=== PATIENT | female | born 1950 | race Caucasian/White ===

== ENCOUNTER 2016-03-22 02:18 | Emergency (ER) | payer BC ==
--- NOTE | 2016-03-22 02:32 | Emergency Department Record ---
History of Present Illness - General Chief complaint: Pain Stated complaint: RIGHT HIP PAIN Time Seen by Provider: 03/22/16 02:31 Source: Patient Mode of Arrival: Ambulatory Limitations: No limitations - History of Present Illness Initial comments: The patient is here due to R sided pelvis pain for 12 months. She denies any fall or direct trauma. She may have injured it when she went horse back riding 4 months ago and twisted funny. 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 There is pain with walking and she states she feels like her hip catches with walking at times. She denies any AP, leg numbness, weakness or any fevers. MD Complaint: Joint pain Onset/Timin -: Month(s) Location: Right Quality: Aching, Sharp Consistency: Constant Improves with: Nothing Worsens with: Nothing - Related Data Home Medications Medication Instructions Recorded Confirmed Last Taken Triamterene/Hydrochlorothiazid 20 mg PO ASDIR 11/13/15 03/22/16 11/12/15 [Triamterene-Hctz 37.5-25 mg Cp] Ibuprofen [Motrin] 800 mg PO Q8H PRN 11/14/15 03/22/16 Unknown Potassium Chloride [Klor-Con] 10 meq PO ASDIR 03/22/16 03/22/16 Unknown Previous Rx's Medication Instructions Recorded Tramadol HCl 50 mg PO Q8H #15 tab 03/22/16 Allergies Allergy/AdvReac Type Severity Reaction Status Date / Time Sulfa (Sulfonamide AdvReac Severe HIVES Verified 11/13/15 23:49 Antibiotics) Travel Screening - Travel/Exposure Within Last 30 Days Have you traveled within the last 30 days?: No Review of Systems Constitutional: Denies: Chills, Fever Eyes: Denies: Eye discharge ENT: Denies: Congestion Respiratory: Denies: Cough, Dyspnea Cardiovascular: Denies: Arrhythmia Past Medical History - SOCIAL HISTORY Smoking Status: Never smoker Alcohol Use: None Drug Use: None - RESPIRATORY Hx Respiratory Disorders: No - CARDIOVASCULAR Hx Cardio Disorders: Yes Hx Hypertension: Yes - NEURO Hx Neuro Disorders: No - GI Hx GI Disorders: No - Hx Genitourinary Disorders: No - ENDOCRINE Hx Endocrine Disorders: No - MUSCULOSKELETAL Hx Musculoskeletal Disorders: Yes Hx Arthritis: Yes (knees) Comment:: per pt torn rotater cuff left shoulder - PSYCH Hx Psych Problems: Yes Comment:: stress - HEMATOLOGY/ONCOLOGY Hx Hematology/Oncology Disorders: No Family Medical History Any Significant Family History?: Yes Hx Cancer: Father, Mother Hx Diabetes: Mother, Grandparents Hx Heart Disease: Grandparents Hx HTN: Father, Mother Hx Kidney Disease: Mother Physical Exam - General General Appearance: Alert, Oriented x3, Cooperative, No acute distress - Head Head exam: Atraumatic, Normocephalic, Normal inspection - Eye Eye exam: Normal appearance, PERRL - Neck Neck exam: Normal inspection, Full ROM. negative: Tenderness - Respiratory Respiratory exam: Normal lung sounds bilaterally. negative: Respiratory distress - Cardiovascular Cardiovascular Exam: Regular rate, Normal rhythm, Normal heart sounds - GI/Abdominal GI/Abdominal exam: Soft, Normal bowel sounds. negative: Tenderness - Extremities Extremities exam: Normal inspection, Full ROM (with only mild pain with full ROM of the R hip.), Tenderness (There is mild tenderness to palpation of the R lateral iliac wing.). negative: Joint swelling - Back Back exam: Reports: Normal inspection, Full ROM. Denies: Muscle spasm, Rash noted, Tenderness, Vertebral tenderness - Neurological Neurological exam: Alert, Normal gait, Oriented X3. negative: Abnormal gait, Altered, Motor sensory deficit - Psychiatric Psychiatric exam: negative: Agitated, Anxious, Depressed - Skin Skin exam: negative: Rash Course Vital Signs 03/22/16 02:28 Temperature 97.4 F L Pulse Rate 79 Respiratory 21 Rate Blood Pressure 148/89 Pulse Ox 98 - Reevaluation(s) Reevaluation #1: The patient is doing better at this time. Her pain is improved with the Toradol and she is ambulating normally. I did explain to her that I felt the xrays were WNL and that the best course of action is for her to F/U with her PCP for recheck and possibly to have an MRI ordered. 03/22/16 03:14 Medical Decision Making - Data Complexity MDM Data: X-Ray Ordered and/or Reviewed - Radiology Data Radiology results: Report reviewed (R Hip: No acute changes.) Disposition Disposition: Discharge Clinical Impression: Chronic right hip pain Disposition: Home, Self-Care Condition: (1) Good Instructions: Arthralgia (ED) Additional Instructions: Please continue your Motrin or Alleve for pain and also take the Tramadol if needed. Please see your PCP this week for recheck and possibly to have an MRI ordered of the hip. Please return to the ER for any increased pain, fever, or weakness. Prescriptions: Tramadol HCl 50 mg PO Q8H #15 tab Forms: Patient Portal Access Time of Disposition: 03:13
[2016-03-22] MEDS ORDERED: KETOROLAC 30 MG/ML VIAL IM ONE (02:37)
--- NOTE | 2016-03-25 13:24 | RADIOLOGY REPORT ---
EXAM: RIGHT HIP HISTORY: PATIENT HAS RIGHT HIP PAIN TIMES ONE MONTH. PATIENT STATED PREVIOUS TWIST OF HIP TIMES FOUR MONTHS AGO. COULD BE RELATED TO PAIN. TECHNIQUE: AP view of the pelvis and two views of the right hip were provided without comparison studies. FINDINGS: There is no radiographic evidence of a fracture or dislocation of the visualized pelvis. Degenerative changes of the pubic symphysis are noted. The visualized left hip is unremarkable. The visualized soft tissues of the pelvis appear unremarkable. Punctate densities noted in the region of the soft tissues of the left hip. This finding may represent overlying artifact. Clinical correlation is recommended. There is no radiographic evidence of a fracture or dislocation of the right hip. No significant soft tissue abnormalities are identified. IMPRESSION: NO RADIOGRAPHIC EVIDENCE OF AN ACUTE PROCESS INVOLVING THE RIGHT HIP. DEGENERATIVE CHANGES OF THE PUBIC SYMPHYSIS ARE IDENTIFIED. IF THERE IS FURTHER CLINICAL CONCERN THEN MRI OF THE RIGHT HIP CAN BE OBTAINED FOR FURTHER EVALUATION. JOB NUMBER: [id number] MTDD
== END 2016-03-22 03:21 | disposition home or self-care (01) ==
LOC: ER 02:18
DX: G89.29 Other chronic pain (principal); M25.551 Pain in right hip
CPT/HCPCS: 99283; 96372; 99284; 73502; J1885

== ENCOUNTER 2018-03-31 17:44 | Emergency (ER) | payer MEDICARE ==
--- NOTE | 2018-03-31 18:05 | Emergency Department Record ---
History of Present Illness - General Chief Complaint: Fall Injury Stated Complaint: FELL RIGHT KNEE PAIN Time Seen by Provider: 03/31/18 17:53 Source: Patient, Family Mode of Arrival: Wheelchair Limitations: No limitations - History of Present Illness Initial Comments: 67 yo female presents with bilateral knee pain. This morning the patient slipped on ice at work this morning. She landed on her knees. Her right knee hurts more than the left. She denies any other injuries. No head injury. No other extremity pain or injury. Her right knee hurts mid knee. Complaint: Fall Onset/Timin -: Hour(s) Fall From: Other When Fall Occurred: Other Fall Witnessed: No Place Fall Occurred: Work, Street Loss of Consciousness: None Prolonged Down Time?: No Symptoms Prior to Fall: None Location - Extremities: Left: Knee, Right: Knee Severity: Moderate Severity scale (1-10): 7 Quality: Aching Context: Tripped/slipped Associated Symptoms: Denies - [place] Coma Scale Eye Response: (4) Open spontaneously Motor Response: (6) Obeys commands Verbal Response: (5) Oriented [place] Total: 15 - Related Data Home Medications Medication Instructions Recorded Confirmed Last Taken Tramadol HCl 50 mg PO Q6H PRN 03/31/18 03/31/18 Unknown Allergies Allergy/AdvReac Type Severity Reaction Status Date / Time silver sulfadiazine Allergy HIVES Verified 03/31/18 17:53 [From Silvadene] Sulfa (Sulfonamide AdvReac Severe HIVES Unverified 10/08/16 18:37 Antibiotics) Travel Screening - Travel/Exposure Within Last 30 Days Have you traveled within the last 30 days?: No Review of Systems Constitutional: Denies: Chills, Fever, Malaise, Weakness Eyes: Denies: Eye discharge ENT: Denies: Congestion, Throat pain Respiratory: Denies: Cough Cardiovascular: Denies: Chest pain, Palpitations, Syncope Endocrine: Denies: Fatigue Gastrointestinal: Denies: Abdominal pain, Diarrhea, Nausea, Vomiting Genitourinary: Denies: Dysuria Musculoskeletal: Reports: Arthralgia. Denies: Back pain, Joint swelling, Myalgia Skin: Denies: Bruising, Change in color, Rash Neurological: Denies: Confusion, Headache, Numbness, Weakness Psychiatric: Denies: Anxiety Hematological/Lymphatic: Denies: Easy bleeding, Easy bruising, Swollen glands Past Medical History - SOCIAL HISTORY Smoking Status: Never smoker - RESPIRATORY Hx Respiratory Disorders: No - CARDIOVASCULAR Hx Cardio Disorders: Yes Hx Hypertension: Yes - NEURO Hx Neuro Disorders: No - GI Hx GI Disorders: No - Hx Genitourinary Disorders: No - ENDOCRINE Hx Endocrine Disorders: No - MUSCULOSKELETAL Hx Musculoskeletal Disorders: Yes Hx Arthritis: Yes (knees) Comment:: per pt torn rotater cuff left shoulder - PSYCH Hx Psych Problems: Yes Comment:: stress - HEMATOLOGY/ONCOLOGY Hx Hematology/Oncology Disorders: No Family Medical History Any Significant Family History?: Yes Hx Cancer: Father, Mother Hx Diabetes: Mother, Grandparents Hx Heart Disease: Grandparents Hx HTN: Father, Mother Hx Kidney Disease: Mother Physical Exam - General General Appearance: Alert, Oriented x3, Cooperative, No acute distress Limitations: No limitations - Head Head exam: Atraumatic, Normal inspection Head exam detail: negative: Abrasion, Contusion, Hematoma, Laceration - Eye Eye exam: Normal appearance. negative: Conjunctival injection - ENT ENT exam: Normal exam Ear exam: Normal external inspection Nasal Exam: Normal inspection Mouth exam: Normal external inspection - Neck Neck exam: Normal inspection - Cardiovascular Cardiovascular Exam: Regular rate, Normal rhythm, Normal heart sounds - GI/Abdominal GI/Abdominal exam: Soft - Rectal Rectal exam: Deferred - exam: Deferred - Extremities Extremities exam: Normal inspection, Full ROM, Tenderness. negative: Calf tenderness, Joint swelling, Normal capillary refill, Pedal edema Image of Full Body: 1 - tender anteriorly, full ROM, no crepitus 2 - tender medially, normal inspection - Back Back exam: Denies: CVA tenderness (R), CVA tenderness (L) - Neurological Neurological exam: Alert, Oriented X3 - Psychiatric Psychiatric exam: Normal affect, Normal mood - Skin Skin exam: Dry, Intact, Normal color, Warm Course Vital Signs 03/31/18 17:48 Temperature 98.7 F Pulse Rate 72 Respiratory 20 Rate Blood Pressure 181/96 Pulse Ox 97 Disposition Disposition: Discharge Clinical Impression: Contusion of knee, right Qualifiers: Encounter type: initial encounter Qualified Code(s): S80.01XA - Contusion of right knee, initial encounter Contusion of left knee Qualifiers: Encounter type: initial encounter Qualified Code(s): S80.02XA - Contusion of left knee, initial encounter Disposition: Home, Self-Care Condition: (1) Good Instructions: Knee Sprain (ED) Additional Instructions: Call your doctor for the next available follow up appointment Return to the ER for a recheck if worse, any new concerns or questions Take the prescriptions provided as directed Review this ER visit and the tests performed with your family doctor Forms: Patient Portal Access Quality - Blood Pressure Screening Does Patient Have Any of the Following: No Blood Pressure Classification: Hypertensive Reading Systolic Measurement: 181 Diastolic Measurement: 96
--- NOTE | 2018-04-04 08:05 | RADIOLOGY REPORT ---
EXAM: RIGHT KNEE HISTORY: FELL. RIGHT KNEE PAIN. TECHNIQUE: Four views of the right knee are obtained including a sunrise view. FINDINGS: There is mild medial compartment narrowing. There is mild patellofemoral narrowing. There are no joint effusions. There are no fractures. IMPRESSION: MILD RIGHT KNEE DJD. JOB NUMBER: [id number] [facility]
--- NOTE | 2018-04-04 08:26 | RADIOLOGY REPORT ---
EXAM: LEFT KNEE, FOUR VIEWS HISTORY: FELL. KNEE PAIN. TECHNIQUE: Four views of the left knee were obtained. FINDINGS: There is moderate medial compartment narrowing with osteophytosis. There is mild lateral compartment narrowing. There is mild patellofemoral DJD. There are no fractures. There is no effusion. IMPRESSION: MODERATE LEFT KNEE DJD. [facility] NUMBER: [id number] [facility]
== END 2018-03-31 19:04 | disposition home or self-care (01) ==
LOC: ER 17:44
DX: S80.01XA Contusion of right knee, initial encounter (principal); S80.02XA Contusion of left knee, initial encounter; W01.0XXA Fall on same level from slipping, tripping and stumbling without subsequent striking against object, initial encounter; Y93.29 Activity, other involving ice and snow; Y92.9 Unspecified place or not applicable; Y99.8 Other external cause status
CPT/HCPCS: 99283

== ENCOUNTER 2018-11-07 18:53 | Emergency (ER) | payer MEDICARE ==
[2018-11-07] MEDS ORDERED: CEFEPIME HCL 2 GM in 0.9 % SODIUM CHLORIDE 100ML 100 ML IVPB ONE (19:15)
--- NOTE | 2018-11-07 19:17 | Emergency Department Record ---
History of Present Illness - General Chief complaint: Extremity Problem Stated complaint: CELLULITIS Time Seen by Provider: 11/07/18 19:08 Source: Patient Mode of Arrival: Ambulatory Limitations: No limitations - History of Present Illness Initial comments: 68 yo female presents with redness and some drainage to the leg. She was diagnosed with cellulitis 8 days ago. She had a culture preformed by the [facility] that grew pseudomonas aeruginosa. She has a history of similar cellulitis in the past. She denies fever or pain. She has some superficial erosion with drainage. 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 Dr Crockett is her doctor. She is on Levaquin and not improving. The C and S was reviewed. It is intermediate. MD Complaint: Extremity swelling, Other (Cellulitis) -: Week(s) (1 week 1 day) Location: Left History of Same: Yes Radiation: Distal Quality: Other (swelling) Consistency: Constant Improves with: Nothing Worsens with: Nothing - Related Data Home Medications Medication Instructions Recorded Confirmed Last Taken Hydrocodone/Acetaminophen [[place] 1 tab PO Q6HR PRN 11/07/18 11/07/18 Unknown 5-325 Tablet] Allergies Allergy/AdvReac Type Severity Reaction Status Date / Time silver sulfadiazine Allergy HIVES Verified 11/07/18 19:14 [From Silvadene] Sulfa (Sulfonamide AdvReac Severe HIVES Verified 11/07/18 19:14 Antibiotics) Review of Systems Constitutional: Denies: Chills, Fever, Malaise, Weakness Eyes: Denies: Eye discharge ENT: Denies: Congestion, Throat pain Respiratory: Denies: Cough, Dyspnea Cardiovascular: Denies: Chest pain, Palpitations, Syncope Endocrine: Denies: Fatigue, Polydipsia, Polyuria Gastrointestinal: Denies: Abdominal pain, Diarrhea, Nausea, Vomiting Genitourinary: Denies: Dysuria, Urgency Musculoskeletal: Denies: Arthralgia, Back pain, Myalgia, Neck pain Skin: Reports: Change in color, Rash. Denies: Bruising Neurological: Denies: Confusion, Headache, Weakness Psychiatric: Denies: Anxiety Hematological/Lymphatic: Denies: Easy bleeding, Easy bruising Past Medical History - SOCIAL HISTORY Smoking Status: Never smoker - RESPIRATORY Hx Respiratory Disorders: No - CARDIOVASCULAR Hx Cardio Disorders: Yes Hx Hypertension: Yes - NEURO Hx Neuro Disorders: No - GI Hx GI Disorders: No - Hx Genitourinary Disorders: No - ENDOCRINE Hx Endocrine Disorders: No - MUSCULOSKELETAL Hx Musculoskeletal Disorders: Yes Hx Arthritis: Yes (knees) Comment:: per pt torn rotater cuff left shoulder - PSYCH Hx Psych Problems: Yes Comment:: stress - HEMATOLOGY/ONCOLOGY Hx Hematology/Oncology Disorders: No Family Medical History Hx Cancer: Father, Mother Hx Diabetes: Mother, Grandparents Hx Heart Disease: Grandparents Hx HTN: Father, Mother Hx Kidney Disease: Mother Physical Exam - General General Appearance: Alert, Oriented x3, Cooperative, No acute distress Limitations: No limitations - Head Head exam: Atraumatic, Normal inspection - Eye Eye exam: Normal appearance. negative: Conjunctival injection, Scleral icterus - ENT ENT exam: Normal exam, Mucous membranes moist Ear exam: Normal external inspection Nasal Exam: Normal inspection Mouth exam: Normal external inspection - Neck Neck exam: Normal inspection - Respiratory Respiratory exam: Normal lung sounds bilaterally. negative: Respiratory distress, Rhonchi, Stridor, Wheezes - Cardiovascular Cardiovascular Exam: Regular rate, Normal rhythm, Normal heart sounds - GI/Abdominal GI/Abdominal exam: Soft. negative: Tenderness - Rectal Rectal exam: Deferred - exam: Deferred - Extremities Extremities exam: Full ROM, Normal capillary refill, Pedal edema, Other (erythema, chronic edema skin changes, mild warmth, posterior erosion superficial with drainage). negative: Normal inspection, Calf tenderness, Tenderness - Back Back exam: Reports: Full ROM - Neurological Neurological exam: Alert, Oriented X3 - Psychiatric Psychiatric exam: Normal affect, Normal mood - Skin Skin exam: Erythema Course - Reevaluation(s) Reevaluation #1: The C and S was reviewed. I recommend Labs, IV, and antibiotics 11/07/18 19:17 11/07/18 19:58 The CBC and BMP were reviewed. No acute significant abnormality. 11/07/18 20:01 CRP 0.8 11/07/18 21:00 I offered admission. The patient does not prefer admit at this time. She will return in 12 hours for another dose of IV antibiotics and a recheck. Medical Decision Making - Lab Data Result diagrams: 11/07/18 19:30 11/07/18 19:30 Disposition Disposition: Discharge Clinical Impression: Cellulitis Qualifiers: Site of cellulitis: unspecified site Qualified Code(s): L03.90 - Cellulitis, unspecified Disposition: Home, Self-Care Condition: (1) Good Instructions: Cellulitis (ED) Additional Instructions: Return at 8am for a repeat dose of antibiotics Continue your Levaquin until gone Keep your leg elevated to minimize swelling Return to the ED sooner if fever, pain, worse Forms: Patient Portal Access Time of Disposition: 20:17 Quality - Quality Measures Quality Measures: N/A - Blood Pressure Screening Does Patient Have Any of the Following: No Blood Pressure Classification: Pre-Hypertensive BP Reading Systolic Measurement: 134 Diastolic Measurement: 75 Screening for High Blood Pressure: < Pre-Hypertensive BP, F/U Documented > [G8950] Pre-Hypertensive Follow-up Interventions: Referral to alternative/primary care provider.
[2018-11-07 19:38] LABS: ABSOLUTE NEUTROPHIL COUNT 5.36; BASO % 0.7 % (0-6); EOS % 4.9 % (0-6); GRAN % 65.3 % (47-80); HEMATOCRIT 48.3 % (35.0-47.0); LYMPH % 20.3 % (16-45); MEAN CELL VOLUME 90.4 fl (81-97); MEAN CORPUSCULAR HEMOGLOBIN 28.1 pg (27-33); MEAN CORPUSCULAR HGB CONC 31.1 g/dl (32-36); MEAN PLATELET VOLUME 11.1 fl (7.4-10.4); MONO % 8.8 % (0-9); PLATELET COUNT 258 K/uL (130-400); RED BLOOD COUNT 5.34 M/uL (3.80-5.40); RED CELL DISTRIBUTION WIDTH 14.4 % (11.5-14.5); WHITE BLOOD COUNT W/O DIFF 8.2 K/uL (4.2-12.2)
[2018-11-07 19:52] LABS: BLOOD UREA NITROGEN 25 mg/dL (8-23); CREATININE 0.9 mg/dL (0.5-0.9); EST GLOMERULAR FILTRATION RATE > 60 mL/min
[2018-11-07 19:55] LABS: GLUCOSE,RANDOM 182 mg/dL (74-109)
[2018-11-07 19:58] LABS: C-REACTIVE PROTEIN 0.79 mg/dL (<0.5)
== END 2018-11-07 20:45 | disposition home or self-care (01) ==
LOC: ER 18:53
DX: L03.116 Cellulitis of left lower limb (principal)
CPT/HCPCS: 80048; 85025; 86140; 96365; 99284

== ENCOUNTER 2018-11-08 07:56 | Emergency (ER) | payer MEDICARE ==
[2018-11-08] MEDS ORDERED: CEFEPIME HCL 2 GM in 0.9 % SODIUM CHLORIDE 100ML 100 ML IVPB ONE (08:12)
--- NOTE | 2018-11-08 08:21 | Emergency Department Record ---
History of Present Illness - General Stated complaint: NEEDS IV ABX Time Seen by Provider: 11/08/18 08:00 Source: Patient Mode of Arrival: Ambulatory Limitations: No limitations - History of Present Illness Initial comments: The patient is here due to being told she needs another dose of IV Abx's. She has a hx of chronic Lymphedema and recurrent cellulitis. Recently her L leg se emed to be more swollen so she went to the and had a wound culture obtained from a weeping abrasion over the back of the leg on 11/03. The wound is not an ulcer and is not draining any purulence. Now it is growing out multiple bacteria including Pseudomonas so she was sent to the ER for IV Abx's. She received Cefepime last evening and now is back for more. The patient tells me her legs do not hurt and they are always this swollen and always pink in color. The L leg is slightly more swollen than the R which is normal per the patient and also may be very slightly more erythematous. She denies any pain or new discomfort to the legs. The patient had been to the wound clinic at [facility] in the past for her lymphedema. MD Complaint: Extremity pain Onset/Timin -: Week(s) - Related Data Previous Rx's Medication Instructions Recorded Levofloxacin [Levaquin] 500 mg PO DAILY #5 tablet 11/08/18 Allergies Allergy/AdvReac Type Severity Reaction Status Date / Time silver sulfadiazine Allergy HIVES Verified 11/08/18 08:14 [From Silvadene] Sulfa (Sulfonamide AdvReac Severe HIVES Verified 11/08/18 08:14 Antibiotics) Review of Systems Constitutional: Denies: Chills, Fever Eyes: Denies: Eye discharge Gastrointestinal: Denies: Nausea Musculoskeletal: Denies: Back pain Neurological: Denies: Abnormal gait Past Medical History - SOCIAL HISTORY Smoking Status: Never smoker - RESPIRATORY Hx Respiratory Disorders: No - CARDIOVASCULAR Hx Cardio Disorders: Yes Hx Hypertension: Yes - NEURO Hx Neuro Disorders: No - GI Hx GI Disorders: No - Hx Genitourinary Disorders: No - ENDOCRINE Hx Endocrine Disorders: No - MUSCULOSKELETAL Hx Musculoskeletal Disorders: Yes Hx Arthritis: Yes (knees) Comment:: per pt torn rotater cuff left shoulder - PSYCH Hx Psych Problems: Yes Comment:: stress - HEMATOLOGY/ONCOLOGY Hx Hematology/Oncology Disorders: No Family Medical History Hx Cancer: Father, Mother Hx Diabetes: Mother, Grandparents Hx Heart Disease: Grandparents Hx HTN: Father, Mother Hx Kidney Disease: Mother Physical Exam - General General Appearance: Alert, Oriented x3, Cooperative, No acute distress (The patient is clearly nontoxic.) - Head Head exam: Atraumatic, Normocephalic, Normal inspection - Eye Eye exam: Normal appearance - Neck Neck exam: Normal inspection, Full ROM. negative: Tenderness - Respiratory Respiratory exam: Normal lung sounds bilaterally. negative: Respiratory distress - Cardiovascular Cardiovascular Exam: Regular rate, Normal rhythm, Normal heart sounds - Extremities Extremities exam: Pedal edema (4+ chronically L>R. The L leg does have mild erythema to the proximal L lower leg but no warmth or tenderness. There is a mild abrasion to the posterior inferior L lower leg but clearly no wound or abscess. ), Other (The patient states her legs appear fairly normal for her chronic condition. They are not painful or tender but the L leg is very slightly more erythematous. ). negative: Normal inspection, Joint swelling Course Vital Signs 11/08/18 08:04 Temperature 97.9 F Pulse Rate [ 81 Pulse Ox Probe] Respiratory 16 Rate Blood Pressure 137/88 [Left Arm] Pulse Ox 98 - Reevaluation(s) Reevaluation #1: I did discuss with the patient what I felt the issues were with her leg edema and presumed infection. Reviewing the wound culture that I feel was performed in error it clearly has no WBC's evident and is growing MULTIPLE organisms which indicate skin juan and contamination. Additionally there is no wound present where it was performed and just a weeping very superficial abrasion. I feel the real problem is the patient's lymphedema which is now worse than normal for the patient. She will need to go to the wound clinic at [facility] and have her legs compressed before the erythema will resolve. I also did discuss the case at length with Abbie in Dr. Crockett's office and she is aware of recent events and will see the patient tomorrow and continue her treatment. 11/08/18 08:45 Medical Decision Making - Management Options MDM Management: Additional Work-up Planned (e.g. ADM/Transfer/OP Study) - Data Complexity MDM Data: Review and Summary of Old Record Discussed Disposition Disposition: Discharge Clinical Impression: Cellulitis Qualifiers: Site of cellulitis: unspecified site Qualified Code(s): L03.90 - Cellulitis, unspecified Disposition: Home, Self-Care Condition: (2) Stable Instructions: Wound Infection (ED) Additional Instructions: Please continue the Levaquin as directed and keep the appointment with Dr. Crockett's office for tomorrow. Please be off work 2 days and elevate the legs with compression. Return to the ER for any pain, fever, or worsening symptoms. Prescriptions: Levofloxacin [Levaquin] 500 mg PO DAILY #5 tablet Forms: Patient Portal Access Time of Disposition: 09:05 Quality - Quality Measures Quality Measures: N/A - Blood Pressure Screening View Details: Yes Does Patient Have Any of the Following: No Blood Pressure Classification: Pre-Hypertensive BP Reading Systolic Measurement: 137 Diastolic Measurement: 88 Screening for High Blood Pressure: < Pre-Hypertensive BP, F/U Documented > [G8950] Pre-Hypertensive Follow-up Interventions: Referral to alternative/primary care provider.
== END 2018-11-08 09:17 | disposition home or self-care (01) ==
LOC: ER 07:56
DX: L03.116 Cellulitis of left lower limb (principal); R60.0 Localized edema
CPT/HCPCS: 96374; 99284

== ENCOUNTER 2019-02-17 23:08 | Emergency (ER) | payer MEDICARE ==
[2019-02-17] MEDS ORDERED: IPRATROPIUM/ALBUTEROL (0.5MG/3MG) NEB INH ONE (23:39)
[2019-02-17] MEDS ORDERED: METHYLPREDNISOLONE PF 125MG/VIAL IM ONE (23:47)
--- NOTE | 2019-02-17 23:47 | Emergency Department Record ---
History of Present Illness - General Chief Complaint: Cough Stated Complaint: COUGH/WHEEZING Time Seen by Provider: 02/17/19 23:38 Source: Patient Mode of Arrival: Ambulatory - History of Present Illness Initial Comments: The patient states that she had a cough which started 3 weeks ago, improved and then returned worse than before. She is now coughing so hard that she gets short of breath. Also tonight she noticed she was wheezing with her shortness of breath. She had pneumonia many years ago once, but denies asthma, smoking, fevers, chills, or production of sputum. She has no inhalers at home as she has never used them. She is under the care of an infectious disease doctor ( Dr. Uribe) who is giving her IV antibiotics periodically for lower leg cellulitis which is an ongoing process which has been pre-scheduled. -: Week(s) Consistency: Constant - Related Data Home Medications Medication Instructions Recorded Confirmed Last Taken Alprazolam 0.25 mg PO DAILY PRN 02/17/19 02/17/19 Unknown Ibuprofen 800 mg PO TID PRN 02/17/19 02/17/19 Unknown Allergies Allergy/AdvReac Type Severity Reaction Status Date / Time silver sulfadiazine Allergy HIVES Unverified 11/13/18 14:43 [From Silvadene] Sulfa (Sulfonamide AdvReac Severe HIVES Unverified 11/13/18 14:43 Antibiotics) Travel Screening - Travel/Exposure Within Last 30 Days Have you traveled within the last 30 days?: No - Travel Symptoms Symptom Screening: None Review of Systems Reviewed: No additional complaints except as noted below Constitutional: Reports: As per HPI. Denies: Chills, Fever, Malaise, Night sweats, Weakness, Weight change Eyes: Reports: As per HPI. Denies: Eye discharge, Eye pain, Photophobia, Vision change ENT: Reports: As per HPI. Denies: Congestion, Dental pain, Ear pain, Epistaxis, Hearing loss, Throat pain Respiratory: Reports: As per HPI. Denies: Cough, Dyspnea, Hemoptysis, Stridor, Wheezes Cardiovascular: Reports: As per HPI. Denies: Arrhythmia, Chest pain, Dyspnea on exertion, Edema, Murmurs, Orthopnea, Palpitations, Paroxysmal nocturnal dyspnea, Rheumatic Fever, Syncope Endocrine: Reports: As per HPI. Denies: Fatigue, Heat or cold intolerance, Polydipsia, Polyuria Gastrointestinal: Reports: As per HPI. Denies: Abdominal pain, Constipation, Diarrhea, Hematemesis, Hematochezia, Melena, Nausea, Vomiting Genitourinary: Reports: As per HPI. Denies: Abnormal menses, Discharge, Dyspareunia, Dysuria, Frequency, Hematuria, Incontinence, Retention, Urgency Musculoskeletal: Reports: As per HPI. Denies: Arthralgia, Back pain, Gout, Joint swelling, Myalgia, Neck pain Skin: Reports: As per HPI. Denies: Bruising, Change in color, Change in hair/nails, Lesions, Pruritus, Rash Neurological: Reports: As per HPI. Denies: Abnormal gait, Confusion, Headache, Numbness, Paresthesias, Seizure, Tingling, Tremors, Vertigo, Weakness Psychiatric: Reports: As per HPI. Denies: Anxiety, Auditory hallucinations, Depression, Homicidal thoughts, Suicidal thoughts, Visual hallucinations Hematological/Lymphatic: Reports: As per HPI. Denies: Anemia, Blood Clots, Easy bleeding, Easy bruising, Swollen glands Past Medical History - SOCIAL HISTORY Smoking Status: Never smoker Alcohol Use: None Drug Use: None - RESPIRATORY Hx Respiratory Disorders: No - CARDIOVASCULAR Hx Cardio Disorders: Yes Hx Hypertension: Yes - NEURO Hx Neuro Disorders: No - GI Hx GI Disorders: No - Hx Genitourinary Disorders: No - ENDOCRINE Hx Endocrine Disorders: No - MUSCULOSKELETAL Hx Musculoskeletal Disorders: Yes Hx Arthritis: Yes (knees) Comment:: per pt torn rotater cuff left shoulder - PSYCH Hx Psych Problems: Yes Comment:: stress - HEMATOLOGY/ONCOLOGY Hx Hematology/Oncology Disorders: No Family Medical History Any Significant Family History?: Yes Hx Cancer: Father, Mother Hx Diabetes: Mother, Grandparents Hx Heart Disease: Grandparents Hx HTN: Father, Mother Hx Kidney Disease: Mother Physical Exam - General General Appearance: Alert, Oriented x3, Cooperative, Mild distress - Head Head exam: Normal inspection - Eye Eye exam: Normal appearance, PERRL, EOMI. negative: Conjunctival injection, Nystagmus Pupils: Normal accommodation - ENT ENT exam: Normal exam, Mucous membranes moist, Normal external ear exam, Normal orophraynx, TM's normal bilaterally Ear exam: Normal external inspection. negative: External canal tenderness Nasal Exam: Normal inspection. negative: Discharge, Sinus tenderness Mouth exam: Normal external inspection, Tongue normal Teeth exam: Normal inspection. negative: Dental caries Throat exam: Normal inspection. negative: Tonsillar erythema, Tonsillar exudate - Neck Neck exam: Normal inspection, Full ROM. negative: Lymphadenopathy, Meningismus, Tenderness - Respiratory Respiratory exam: Normal lung sounds bilaterally, Wheezes (expiratory faint wheezes bilaterally). negative: Accessory muscle use, Chest wall tenderness, Decreased breath sounds, Respiratory distress - Cardiovascular Cardiovascular Exam: Regular rate, Normal rhythm, Normal heart sounds - GI/Abdominal GI/Abdominal exam: Soft, Normal bowel sounds. negative: Tenderness - Rectal Rectal exam: Deferred - exam: Deferred - Extremities Extremities exam: Normal inspection, Full ROM, Normal capillary refill, Pedal edema (chronic anasarca cellulitis and drainage bilaterally per patient). negative: Calf tenderness, Tenderness - Back Back exam: Reports: Normal inspection, Full ROM. Denies: CVA tenderness (R), CVA tenderness (L), Muscle spasm, Rash noted, Tenderness - Neurological Neurological exam: Alert, CN II-XII intact, Normal gait, Oriented X3, Reflexes normal. negative: Motor sensory deficit - Psychiatric Psychiatric exam: Normal affect, Normal mood - Skin Skin exam: Dry, Intact, Normal color, Warm Course Vital Signs 02/17/19 23:14 Temperature 98.8 F Pulse Rate [ 82 Left] Respiratory 20 Rate Blood Pressure 129/102 [Left Arm] Pulse Ox 96 - Reevaluation(s) Reevaluation #1: Patient has improved but has residual wheeze. Will send her home on inhaler with teaching. 02/18/19 00:29 Medical Decision Making - Management Options MDM Management: No Additional Work-up Planned - Data Complexity MDM Data: Labs Ordered and/or Reviewed (Influenza A and B both negative) Disposition Disposition: Discharge Clinical Impression: Viral bronchitis Disposition: Home, Self-Care Condition: (2) Stable Instructions: Cold Symptoms (ED) Additional Instructions: Home with inhaler to use as needed, 2-4 puffs 4-6 times daily. PCP follow up in office this week. tylenol alternated with ibuprofen as needed for fevers or pain. Quality - Quality Measures Quality Measures: N/A - Blood Pressure Screening Does Patient Have Any of the Following: No Blood Pressure Classification: Hypertensive Reading Systolic Measurement: 156 Diastolic Measurement: 74 Screening for High Blood Pressure: < Normal BP, F/U Not Required > [[id number]]
[2019-02-18 00:20] LABS: INFLUENZA A NEGATIVE (NEGATIVE); INFLUENZA B NEGATIVE (NEGATIVE)
[2019-02-18] MEDS ORDERED: IPRATROPIUM/ALBUTEROL 4 GM INH INH ONE (00:28)
[2019-02-18] MEDS ORDERED: ALBUTEROL HFA 8 GM INHALER INH ONE (00:37)
== END 2019-02-18 00:47 | disposition home or self-care (01) ==
LOC: ER 23:08
DX: J20.8 Acute bronchitis due to other specified organisms (principal); I10 Essential (primary) hypertension
CPT/HCPCS: 87400; 94640; 94664; 96372; 99284; J2930